=== PATIENT | male | born 1945 | race African-American/Black ===

== ENCOUNTER 2017-01-29 05:25 | Day surgery (SDC) | payer MEDICARE, BC, OTHER ==
--- NOTE | ~2017-01-29 | OP ---
Record Of Operation [facility] [address] [place]. [address] NAME: Judy CALLOWAY JR : 41 STATUS : REG [facility]#: [id number] AGE: 71 ADM/REG DATE : 01/29/17 MR#: [id number] REPORT SERV DATE: 01/29/17 DICTATED BY: FABIO GEORGE DATE: 01/29/17 REPORT STATUS : Draft TRANSCRIBED BY: MODJudy DATE: 01/29/17 DATE OF PROCEDURE: 01/29/2017 PREOPERATIVE DIAGNOSIS: Gastric cancer. POSTOPERATIVE DIAGNOSIS: Gastric cancer. OPERATION PERFORMED: Right internal jugular Port-A-Cath under ultrasound and fluoroscopic guidance. SURGEON: Fabio George M.D. ANESTHESIA: General. ESTIMATED BLOOD LOSS: Less than 10 mL. IV FLUIDS: Adequate. INDICATION FOR PROCEDURE: Mr. Calloway is a 71-year-old gentleman, who recently underwent a subtotal gastrectomy for gastric cancer. He is brought to the operating room today for a Port-A-Cath placement for IV access. DESCRIPTION OF OPERATION: After appropriate sedation, the patient was prepped and draped in proper sterile fashion. Ultrasound probe was placed over the right neck. He had a patent and pliable right internal jugular vein. Right internal jugular vein was cannulated with a 14-gauge needle under ultrasound guidance. The guidewire was then fed under fluoroscopic guidance just above the right heart. A transverse incision was made at the right chest wall and a pocket was bluntly dissected. Introducer sheath was then placed over the guidewire. A catheter was then fed through the introducer sheath with the tip being just above the right heart. The catheter was then tunneled subcutaneously to the port pocket and secured to the port. The port was secured to the chest wall using 3-0 Vicryl suture. We flushed and aspirated the port, flushed and aspirated easily. Took a confirmatory view which showed good placement of the catheter with the tip being in the SVC. The skin was closed using interrupted 3-0 Vicryl sutures. Steri-Strips and dressings were then placed. The patient was taken to the recovery room in satisfactory condition. ULYSSES/KEELEY Fabio George M.D. / [id number] CC: Record Of Operation [address] [address] NAME: Judy CALLOWAY Katerine PRETTY : 41 STATUS : REG [facility] [place] PAT#: [id number] AGE: 71 ADM/REG DATE : 01/29/17 MR#: [id number] REPORT SERV DATE: 01/29/17 DICTATED BY: FABIO GEORGE DATE: 01/29/17 REPORT STATUS : Draft TRANSCRIBED BY: MODL DATE: 01/29/17 Bk Wright M.D. Gregory R. Sutton, MD
[~2017-01-29 05:25] MED LIST: ADVAIR250 INH; ALLEGRA180 PO; ASAB PO; BEPREVE OPH; DIOVAN HC1 PO; FLOMAX4 PO; FORTAMET500 MG PO; GLUCPH PO; HYT5 PO; LIPITOR20 PO; NORV5 PO; PCET PO; PR25 PO; PREV30 PO; PROSCAR5 PO; REFRESH OPH SO0.3 ML OPH; SEPTRA DS1 TAB PO; TYLOX1 CAP PO; VENTOLIN HFA INH; XALAT OPH
[2017-01-29 06:46] LABS: HEMATOCRIT 33.4 % (40.0-51.0); HEMOGLOBIN 10.5 g/dL (13.6-17.8)
[2017-01-29 06:56] LABS: BUN (BLOOD UREA NITROGEN) 17 MG/DL (6-23); CALCIUM, SERUM 8.8 MG/DL (8.5-10.4); CHLORIDE, SERUM 106 MMOL/L (96-112); CO2 (CARBON DIOXIDE) 28 MMOL/L (24-34); CREATININE 1.17 MG/DL (0.70-1.30); GFR AFRICAN AMERICAN 71 ML/MIN (>=60); GFR NON AFRICAN AMERICAN 61 ML/MIN (>=60); GLUCOSE, SERUM 101 MG/DL (60-99); SODIUM, SERUM 143 MMOL/L (135-148)
[2017-01-29 06:57] LABS: POTASSIUM, SERUM 3.5 MMOL/L (3.5-5.3)
== END 2017-01-29 17:25 | disposition home or self-care (01) ==
LOC: SDC 05:25
PROVIDERS: Specialist
PROC: 05HM33Z Insertion of Infusion Device into Right Internal Jugular Vein, Percutaneous Approach (ICD-10-PCS; principal; 2017-01-29 07:45)
DX: C16.9 Malignant neoplasm of stomach, unspecified (principal); I87.8 Other specified disorders of veins; J45.909 Unspecified asthma, uncomplicated; I10 Essential (primary) hypertension; G47.33 Obstructive sleep apnea (adult) (pediatric); E11.9 Type 2 diabetes mellitus without complications; Z88.5 Allergy status to narcotic agent; M19.90 Unspecified osteoarthritis, unspecified site; Z87.442 Personal history of urinary calculi
CPT/HCPCS: 71010; 76000; 77001; 80048; 82962; 85014; 85018; 93005; C1788; J0690; J2370; J3010